=== PATIENT | female | born 1940 | race Caucasian/White ===

== ENCOUNTER 2017-12-02 11:33 | Emergency (ER) | payer OTHER, MEDICARE ==
[~2017-12-02] VITALS: Ht 157.5 cm; Wt 69.5 kg
[2017-12-02] MEDS ORDERED: ULTRAM50 MG PO (13:59)
[2017-12-02] MEDS ORDERED: KEFLEX500 MG PO (13:59)
[2017-12-02] MEDS ORDERED: ZOFRAN ODT4 MG PO (13:59)
[2017-12-02 14:29] VITALS: BP 172/66
== END 2017-12-02 14:30 | disposition home or self-care (01) ==
LOC: EME 11:33
PROC: 0JQN0ZZ Repair Right Lower Leg Subcutaneous Tissue and Fascia, Open Approach (ICD-10-PCS; principal; 2017-12-02)
DX: S81.811A Laceration without foreign body, right lower leg, initial encounter (principal); S81.812A Laceration without foreign body, left lower leg, initial encounter; S51.812A Laceration without foreign body of left forearm, initial encounter; W11.XXXA Fall on and from ladder, initial encounter; W26.8XXA Contact with other sharp object(s), not elsewhere classified, initial encounter; I10 Essential (primary) hypertension; L11.1 Transient acantholytic dermatosis [Grover]; Z95.9 Presence of cardiac and vascular implant and graft, unspecified; Z88.7 Allergy status to serum and vaccine
CPT/HCPCS: 73590; 99281; 99285; J0690; J7030